=== PATIENT | female | born 1980 | race Caucasian/White ===

== ENCOUNTER → 2016-09-25 | Outpatient (CLI) | payer SELFPAY ==
[~2016-09-25] MED LIST: IRON325 M1 PO; MOTRIN-DPS800 MG PO; NIPPLECREAM TP; PRENATAL VIT1 TAB PO; TYLENOL #3 DPS1 TAB PO
== END | disposition home or self-care (01) ==
LOC: RAD.S 14:00
DX: N63 Unspecified lump in breast (principal)